=== PATIENT | female | born 1995 | race African-American/Black ===

== ENCOUNTER 2017-05-18 23:07 | Emergency (ER) | payer OTHER ==
[2017-05-18 23:08] VITALS: BP 166/100; PULSE 104; RESP 18; TEMP 99; O2SAT 99
[2017-05-19] MEDS ORDERED: SODIUM CHLORIDE 0.9% FLUSH 10 ML FLUSH IV FLUSH PRN (01:15)
[2017-05-19 01:46] LABS: AUTOMATED NEUTROPHIL # 8.1 TH/MM3 (1.8-7.7); BASOPHIL # 0.1 TH/MM3 (0-0.2); BASOPHIL % 0.5 % (0.0-2.0); EOSINOPHIL # 0.2 TH/MM3 (0-0.4); EOSINOPHIL % 1.5 % (0.0-4.0); HEMATOCRIT 39.4 % (35.0-46.0); HEMO FLAGS DIFF FINAL; LYMPH % 28.2 % (9.0-44.0); LYMPHOCYTE # 3.6 TH/MM3 (1.0-4.8); MEAN CORPUSCULAR HEMOGLOBIN 31.6 PG (27.0-34.0); MEAN CORPUSCULAR HGB CONC 33.9 % (32.0-36.0); MONO % 6.3 % (0.0-8.0); NEUT % 63.5 % (16.0-70.0); PLATELET COUNT 335 TH/MM3 (150-450); RED BLOOD COUNT 4.24 MIL/MM3 (4.00-5.30); RED CELL DISTRIBUTION WIDTH 13.6 % (11.6-17.2); WHITE BLOOD COUNT 12.8 TH/MM3 (4.0-11.0)
[2017-05-19] MEDS ORDERED: PANTOPRAZOLE SODIUM 40 MG VIAL IV PUSH ONE (02:15)
[2017-05-19] MEDS ORDERED: ONDANSETRON HCL 4 MG/2 ML VIAL IV PUSH ONE (02:15)
--- NOTE | 2017-05-19 02:26 | PD ---
HPI Chief Complaint: Abdominal Pain Time Seen by Provider: 02:14 Travel History International Travel<30 days: No Contact w/Intl Traveler<30days: No Traveled to known affect area: No History of Present Illness HPI 22-year-old female patient presents to the ER today with 4 hours of burning epigastric abdominal pain. She states is currently a 5 out of 10. She denies any nausea, vomiting, diarrhea, or any other symptoms. She has not had previous issues with this. Modifying Factors: None Associated Signs & Symptoms: Epigastric abdominal pain Risk Factors: None PFSH Past Medical History Medical History: Denies Significant Hx Diminished Hearing: No ?: Not LMP: 04/27/17 Past Surgical History Surgical History: No Previous Surgery Social History Alcohol Use: Yes (RARE) Tobacco Use: No Substance Use: No Allergies-Medications (Allergen,Severity, Reaction): Coded Allergies: No Known Allergies (Unverified , 05/18/17) Review of Systems Except as stated in HPI: all other systems reviewed are Neg Physical Exam Narrative GENERAL: Well-developed young after [place] female patient currently in mild distress. Awake and oriented 3. SKIN: Focused skin assessment warm/dry. HEAD: Atraumatic. Normocephalic. EYES: Pupils equal and round. No scleral icterus. No injection or drainage. ENT: No nasal bleeding or discharge. Mucous membranes pink and moist. NECK: Trachea midline. No JVD. CARDIOVASCULAR: Regular rate and rhythm. No murmur appreciated. RESPIRATORY: No accessory muscle use. Clear to auscultation. Breath sounds equal bilaterally. GASTROINTESTINAL: Abdomen soft, mild epigastric tenderness without guarding or rebound, nondistended. Hepatic and splenic margins not palpable. MUSCULOSKELETAL: No obvious deformities. No clubbing. No cyanosis. No edema. NEUROLOGICAL: Awake and alert. No obvious cranial nerve deficits. Motor grossly within normal limits. Normal speech. PSYCHIATRIC: Appropriate mood and affect; insight and judgment normal. Data Data Last Documented VS Vital Signs Date Time Temp Pulse Resp B/P (MAP) Pulse Ox O2 Delivery O2 Flow Rate FiO2 05/19/17 03:27 76 16 109/69 (82) 99 Room Air 05/18/17 23:08 99.0 Orders Orders Complete Blood Count With Diff (05/19/17 01:02) Comprehensive Metabolic Panel (05/19/17 01:02) Lipase (05/19/17 01:02) Urinalysis - C+S If Indicated (05/19/17 01:02) Iv Access Insert/Monitor (05/19/17 01:02) Ecg Monitoring (05/19/17 01:02) Oximetry (05/19/17 01:02) Sodium Chloride 0.9% Flush (Ns Flush) (05/19/17 01:15) Ed Urine Pregnancytest Poc (05/19/17 01:02) Ondansetron Inj (Zofran Inj) (05/19/17 02:15) Pantoprazole Inj (Protonix Inj) (05/19/17 02:15) Labs Laboratory Tests Test 05/19/17 01:25 05/19/17 03:00 05/19/17 03:10 White Blood Count 12.8 TH/MM3 Red Blood Count 4.24 MIL/MM3 Hemoglobin 13.4 GM/DL Hematocrit 39.4 % Mean Corpuscular Volume 93.0 FL Mean Corpuscular Hemoglobin 31.6 PG Mean Corpuscular Hemoglobin Concent 33.9 % Red Cell Distribution Width 13.6 % Platelet Count 335 TH/MM3 Mean Platelet Volume 9.7 FL Neutrophils (%) (Auto) 63.5 % Lymphocytes (%) (Auto) 28.2 % Monocytes (%) (Auto) 6.3 % Eosinophils (%) (Auto) 1.5 % Basophils (%) (Auto) 0.5 % Neutrophils # (Auto) 8.1 TH/MM3 Lymphocytes # (Auto) 3.6 TH/MM3 Monocytes # (Auto) 0.8 TH/MM3 Eosinophils # (Auto) 0.2 TH/MM3 Basophils # (Auto) 0.1 TH/MM3 CBC Comment DIFF FINAL Differential Comment Urine Color YELLOW Urine Turbidity HAZY Urine pH 7.0 Urine Specific [place] 1.019 Urine Protein 30 mg/dL Urine Glucose (UA) NEG mg/dL Urine Ketones NEG mg/dL Urine Occult Blood SMALL Urine Nitrite NEG Urine Bilirubin NEG Urine Urobilinogen 2.0 MG/DL Urine Leukocyte Esterase NEG Urine RBC 9 /hpf Urine WBC 4 /hpf Urine Squamous Epithelial Cells 8 /hpf Urine Mucus FEW /lpf Microscopic Urinalysis Comment CULT NOT INDICATED Blood Urea Nitrogen 13 MG/DL Creatinine 1.00 MG/DL Random Glucose 90 MG/DL Total Protein 6.7 GM/DL Albumin 2.9 GM/DL Calcium Level 8.1 MG/DL Alkaline Phosphatase 61 U/L Aspartate Amino Transf (AST/SGOT) 25 U/L Alanine Aminotransferase (ALT/SGPT) 18 U/L Total Bilirubin 0.3 MG/DL Sodium Level 139 MEQ/L Potassium Level 4.2 MEQ/L Chloride Level 105 MEQ/L Carbon Dioxide Level 27.0 MEQ/L Anion Gap 7 MEQ/L Estimat Glomerular Filtration Rate 83 ML/MIN Lipase 181 U/L MDM Medical Decision Making Medical Screen Exam Complete: Yes Emergency Medical Condition: Yes Medical Record Reviewed: Yes Interpretation(s) Laboratory Tests Test 05/19/17 01:25 05/19/17 03:00 05/19/17 03:10 White Blood Count 12.8 TH/MM3 (4.0-11.0) Neutrophils # (Auto) 8.1 TH/MM3 (1.8-7.7) Urine Turbidity HAZY (CLEAR) Urine Protein 30 mg/dL (NEG-TRACE) Urine Occult Blood SMALL (NEG) Urine RBC 9 /hpf (0-3) Urine Mucus FEW /lpf (OCC) Albumin 2.9 GM/DL (3.4-5.0) Calcium Level 8.1 MG/DL (8.5-10.1) Estimat Glomerular Filtration Rate 83 ML/MIN (>89) Differential Diagnosis Epigastric abdominal pain: gastritis versus gastroenteritis versus pancreatitis Narrative Course There is mild epigastric tenderness but abdomen is largely benign and I do not suspect an acute intra-abdominal process. Her pancreatic enzymes are unremarkable. Patient was given Protonix and Zofran in the ER. On reevaluation at 3:50 AM, she is feeling improved. Considering the symptoms, this is more likely to be a gastritis rather than other acute intra-abdominal processes. I have talked to the patient regarding symptomatic therapy and reevaluation with primary care physician versus getting CAT scan at this time. Considering the risks and benefits ratio and symptoms, as well as radiation exposure, patient is agreeable to not obtaining CAT scan at this time. At this point, my plan would be to release her with H2 blockers and follow-up to primary care physician. Return for worsening in symptoms as necessary. The plan has been discussed with her and she states understanding. Diagnosis Primary Impression: Gastritis Med/Other Pt SpecificInfo: Prescription(s) given Scripts Ondansetron Odt (Zofran Odt) 4 Mg Tab 4 MG SL Q6HR Y for Nausea/Vomiting, #7 TAB 0 Refills Prov: Kj Petersen MD 05/19/17 Ranitidine (Zantac) 150 Mg Tab 150 MG PO BID for Reduce Stomach Acid, #20 TAB 0 Refills Prov: jK Petersen MD 05/19/17 Disposition: 01 DISCHARGE HOME Condition: Stable Kj Petersen MD May 19, 2017 02:26
[2017-05-19 03:21] LABS: BLOOD, URINE SMALL (NEG); COMMENT (UR) CULT NOT INDICATED; CULTURE IF INDICATED CULT NOT INDICATED; GLUCOSE,URINE NEG (NEG); KETONE, URINE NEG (NEG); MUCUS URINE FEW /lpf (OCC); NITRITE,URINE NEG (NEG); SQUAMOUS EPITHELIAL CELL URINE 8 /hpf (0-5); URINE COLOR YELLOW (YELLW/STRAW)
[2017-05-19 03:27] VITALS: BP 109/69; PULSE 76; RESP 16; O2SAT 99
[2017-05-19 03:41] LABS: ALKALINE PHOSPHATASE 61 U/L (45-117); TOTAL BILIRUBIN ADULT 0.3 MG/DL (0.2-1.0)
[2017-05-19 03:42] LABS: ALT (GPT) 18 U/L (10-53); ANION GAP 7 MEQ/L (5-15); AST (GOT) 25 U/L (15-37); BLOOD UREA NITROGEN 13 MG/DL (7-18); CHLORIDE 105 MEQ/L (98-107); GLOMERULAR FILTRATION RATE 83 ML/MIN (>89); POTASSIUM 4.2 MEQ/L (3.5-5.1); SODIUM (NA) 139 MEQ/L (136-145)
[2017-05-19] MEDS ORDERED: ZANT150T2 PO (03:56)
[2017-05-19] MEDS ORDERED: ZOFR4TAB3 SL (03:56)
== END 2017-05-19 04:21 | disposition home or self-care (01) ==
LOC: NEPC 23:07
DX: K29.70 Gastritis, unspecified, without bleeding (principal)
CPT/HCPCS: 80053; 81001; 83690; 84703; 85025; 96374; 96375; 99284; C9113; J2405